=== PATIENT | male | born 1945 | race Hispanic/Latino ===

== ENCOUNTER 2019-08-23 11:45 | Outpatient (CLI) | payer BC ==
--- NOTE | 2019-08-23 13:23 | ULT ---
RENAL ULTRASOUND: INDICATION: Prostatic hypertrophy. UTI. FINDINGS: Kidneys have a normal sonographic appearance. No evidence of hydronephrosis. Urinary bladder is distended and unremarkable. The prostate is lobular and enlarged. IMPRESSION: Prostatic hypertrophy. Renal ultrasound is unremarkable. POS: [facility]
== END 2019-08-23 11:46 | disposition home or self-care (01) ==
LOC: BICULT 11:45
PROVIDERS: ATTEND Urology
DX: N40.1 Benign prostatic hyperplasia with lower urinary tract symptoms (principal); R35.0 Frequency of micturition
CPT/HCPCS: 76770

== ENCOUNTER 2020-05-14 09:44 | Outpatient (CLI) | payer BC ==
[~2020-05-14 09:44] MED LIST: Iopamidol-370 76% 500 ML 1 ML ONE
--- NOTE | 2020-05-14 10:35 | CT ---
CT Chest Abd Pelvis W Con History: Gastric cancer. Comparison: Stone protocol CT 2014 Findings: Mild atelectasis within the lung bases. Small 3-4 mm right major perifissural lymph nodule. No suspicious pulmonary nodule. Mild increase in number although not pathologically enlarged right paratracheal AP window and subcari nal lymph nodes. No significant pericardial effusion. Abnormal thickening along the distal gastric body is nearly circumferential with relative sparing of the inferior gastric wall. Small adjacent perigastric lymph nodes not pathologically enlarged. Along the anterior gastric wall sagittal image 24 and 25 there appears to be extra serosal involvemen t. Abnormal pathologic pyloric lymph node axial image 60 measures 15 mm in short axis. Liver is unremarkable. Pancreas is unremarkable. The spleen and gallbladder are both normal. No hydronephrosis. Celiac trunk and superior mesenteric arteries are both patent. Marked enlargement of the prostate. No pelvic adenopathy. Appendix is visualized and is normal. No periaortic adenopathy. Thoracic and lumbar spine are intact. Sternum and manubrium are intact. No suspicious osteolytic or o steoblastic foci. Small bone island anterolateral left fourth rib. No acute displaced rib fracture. Impression: 1. Nearly circumferential distal gastric body mass with high degree of concern for extraserosal invol vement along the anterior wall and metastatic pyloric lymph node. 2. Likely reactive or granulomatous mediastinal lymph nodes which is mild increase in number although not pathologically enlarged. 3. Markedly prostatomegaly.
== END 2020-05-14 09:45 | disposition home or self-care (01) ==
LOC: BICCT 09:44
PROVIDERS: ATTEND Internal Medicine Gastroenterology
DX: C16.9 Malignant neoplasm of stomach, unspecified (principal); K31.89 Other diseases of stomach and duodenum; N40.0 Benign prostatic hyperplasia without lower urinary tract symptoms
CPT/HCPCS: 71260; 74177; 82565; Q9967

== ENCOUNTER 2020-05-18 10:33 | Outpatient (CLI) | payer BC ==
--- NOTE | 2020-05-18 11:19 | RAD ---
EXAM: Chest PA and lateral: HISTORY: Preoperative exam. COMPARISON: None FINDINGS: Heart: Normal cardiac silhouette Aorta: Unremarkable Pulmonary vessels: Normal Costophrenic angles: Costophrenic angles are clear. Lungs: No consolidation or masses. Pneumothorax: No pneumothorax Osseous structures: No osseous abnormalities IMPRESSION: No acute cardiopulmonary process.
[2020-05-18 11:25] LABS: #Eosinphils 0.2 10x3/uL (0.0-0.5); #Monocytes 0.5 10x3/uL (0.0-1.1); #Neutrophils 3.7 10x3/uL (1.5-8.4); %Basophils 0.3 % (0.0-2.0); %Eosinophils 3.5 % (0.0-6.0); %Lymphocytes 22.4 % (18.0-47.0); %Monocytes 8.7 % (0.0-10.0); %Neutrophils 64.9 % (40.0-75.0); Hemoglobin 14.1 g/dL (14.0-18.0); Mean Corpuscular HGB CONC 32.6 G/DL (32.0-36.0); Mean Corpuscular Hemoglobin 29.3 PG (27.0-33.0); Mean Corpuscular Volume 89.8 fl (80.0-100.0); Mean Platelet Volume 9.8 fl (7.4-10.4); Platelet Count 228 10x3/uL (130-400); RBC Distribution Width 12.7 % (11.5-14.5); Red Blood Cell (RBC) Count 4.81 10x6/uL (4.40-5.80); White Blood Cell (WBC) Count 5.7 10x3/uL (4.5-11.0)
[2020-05-18 11:34] LABS: Anion Gap 14 mmol/L (10-20); BUN (Urea Nitrogen) 16 mg/dL (8.4-25.7); Calc. Creatinine Clearance 0 mL/min (70-130); Calcium 8.8 mg/dL (7.8-10.44); Carbon Dioxide 25 mmol/L (23-31); Chloride 104 mmol/L (98-107); Estimated GFR-MDRD 76; Glucose 110 mg/dL (83-110); Potassium 4.4 mmol/L (3.5-5.1); Sodium 139 mmol/L (136-145)
[2020-05-18 17:58] LABS: SARS-CoV-2 MS2 Positive; SARS-CoV-2 N Gene Negative; SARS-CoV-2 S Gene Negative; SARS-CoV-2 by NAA Not Detected (NotDetected); SARS-CoV-2 orf1ab Negative
--- NOTE | 2020-05-23 08:31 | EKG ---
Test Reason : PREOP Blood Pressure : / mmHG Vent. Rate : 059 BPM Atrial Rate : 059 BPM P-R Int : 158 ms QRS Dur : 076 ms QT Int : 424 ms P-R-T Axes : 061 075 061 degrees QTc Int : 419 ms Sinus bradycardia Otherwise normal ECG Confirmed by LIN OWENS, SAMANTHA ([id number]) on 05/23/2020 8:30:58 AM Referred By: Paula MAI Confirmed By:SAMANTHA CEBALLOS MD
== END 2020-05-18 10:34 | disposition home or self-care (01) ==
LOC: LABBT 10:33
PROVIDERS: ATTEND Specialist
DX: Z01.818 Encounter for other preprocedural examination (principal); Z20.828 Contact with and (suspected) exposure to other viral communicable diseases; C16.9 Malignant neoplasm of stomach, unspecified
CPT/HCPCS: 71046; 80048; 85025; 87635; 93005; 93010; U0003

== ENCOUNTER 2020-05-22 12:20 | Day surgery (SDC) | payer BC ==
[2020-05-21 11:20] VITALS: BMI 27.9
[2020-05-22] MEDS ORDERED: Acetaminophen 500 MG TAB ONE ×2 (12:42→12:43)
[2020-05-22] MEDS ORDERED: Ketorolac Tromethamine 30 MG/ML VIAL ONE (12:43)
[2020-05-22] MEDS ORDERED: Bupivacaine 0.25% HCL 30 ML VIAL ONE (16:47)
[2020-05-22] MEDS ORDERED: Lidocaine 1% w/Epinephrine 1:100K 20 ML VIAL ONE (16:47)
[2020-05-22] MEDS ORDERED: Propofol 500 MG/50 ML VIAL ONE (16:52)
[2020-05-22] MEDS ORDERED: Midazolam HCl 2 mg/2 ml Vial ONE (16:52)
[2020-05-22] MEDS ORDERED: Fentanyl 100 MCG/2 ML VIAL ONE (16:52)
--- NOTE | 2020-05-22 18:20 | RAD ---
Portable frontal chest radiograph: 05/22/2020 COMPARISON: 05/18/2020 HISTORY: Evaluate chest following Port-A-Cath placement FINDINGS: There is a right-sided Port-A-Cath with distal tip overlying the region of the SVC. No pneu mothorax or pleural fluid. No focal consolidation or alveolar edema. IMPRESSION: Right-sided Port-A-Cath. No pneumothorax seen.
--- NOTE | 2020-05-23 13:17 | OP ---
DATE OF PROCEDURE: 05/22/2020 PREOPERATIVE DIAGNOSIS: Malignancy, requiring chemotherapy. POSTOPERATIVE DIAGNOSIS: Malignancy, requiring chemotherapy. OPERATION PERFORMED: Placement of right subclavian power compatible standard size MediPort. ANESTHESIA: Total intravenous anesthesia with local using a mixture of 1% lidocaine with epinephrine and 0.25% Marcaine. INDICATIONS: The patient is a 74-year-old male. Chemotherapy has been recommended for him and MediPort is requested for this purpose. He was taken to the operating room for port placement. DESCRIPTION OF OPERATION: Informed consent was obtained. The patient was taken to the operating room where total intravenous anesthesia was obtained with the patient in supine position. Right periclavicular area was prepped with ChloraPrep and draped in sterile fashion. Local anesthetic was infiltrated and a large-gauge needle was passed under the clavicle in the subclavian vein. Guidewire was passed through the needle and fluoroscopically confirmed to enter the superior vena cava. Additional local anesthetic was infiltrated and transverse incision was created based on needle insertion site. A subcutaneous pocket was dissected inferiorly. Introducer dilator was passed over the guidewire under fluoroscopic guidance. The guidewire and dilator were removed, and the catheter was passed through the introducer. The tip of the catheter was positioned at the atriocaval junction and the catheter was trimmed to the appropriate length and secured to the locking hub of the MediPort. The port was then placed in the subcutaneous pocket where it was secured to the pectoral fascia with 2 interrupted sutures of 3-0 Prolene. The incision was then closed in layers with 3-0 and 4-0 Monocryl. Additional local anesthetic was infiltrated. The port was cannulated with a Richard needle and it aspirated blood freely and was flushed with heparinized saline. Dermabond was placed externally on the skin incision. There were no complications. Blood loss was negligible. The patient tolerated the procedure well and was taken to recovery room in stable condition. FINDINGS: A standard size port was selected secondary to the patient's body habitus. It was placed uneventfully into the right subclavian vein. Fluoroscopy was used throughout the procedure. There was essentially no blood loss. No complications. The patient tolerated the procedure well and was taken to recovery room in stable condition. Job ID: [id number]
== END 2020-05-22 18:40 | disposition home or self-care (01) ==
LOC: SDC 12:20
PROVIDERS: ATTEND Specialist
PROC: 02HV33Z Insertion of Infusion Device into Superior Vena Cava, Percutaneous Approach (ICD-10-PCS; principal; 2020-05-22)
DX: C16.9 Malignant neoplasm of stomach, unspecified (principal); I10 Essential (primary) hypertension; E78.00 Pure hypercholesterolemia, unspecified; R73.03 Prediabetes; N40.1 Benign prostatic hyperplasia with lower urinary tract symptoms; R35.0 Frequency of micturition
CPT/HCPCS: 71045; C1788; J0690; J1642; J1885; J2250; J2704; J3010; S0020

== ENCOUNTER 2020-05-31 07:59 | Outpatient (CLI) | payer BC ==
--- NOTE | 2020-05-31 10:45 | PET ---
PET SCAN WITH CT ATTENUATION CORRECTION: HISTORY: Malignant neoplasm of the stomach, unspecified. Gastric cancer. Evaluate for metastases. COMPARISON: None. TECHNIQUE: PET scan with CT attenuation correction is performed from the base of the brain to the proximal thigh s following the intravenous administration of 10.9 mm of [id number]. CORRELATION: Chest abdomen and pelvic CT 05/14/2020. FINDINGS: Head and neck: No abnormal FDG localization. Chest: No abnormal FDG localization in the axilla or lung parenchyma. CT used for attenuation correct ion does not demonstrate any lung parenchymal nodules. Hypermetabolic right paratracheal lymph node with a maximum SUV of 5.3. Hypermetabolic AP window lymph node with a maximum SUV of 3.9. Hypermetabo lic subcarinal lymph node with a maximum SUV of 4. Additional hypermetabolic right hilar lymph nodes are suspected. Abdomen and Pelvis: Increased FDG avidity involving the proximal body of the stomach with a maximum S UV of 18.5. The distal body and gastric antrum do not demonstrate any FDG avidity. The gastric serosa does not demonstrate any definite FDG avidity the previously described. Pyloric lymph node is FDG avid with a maximum SUV of 3.2. The possibility of a metastatic lymph node cannot be entirely excluded given the size and rounded appearance. No additional abnormal FDG localization in the alimen tary canal. No additional areas of abnormal FDG localization in the abdomen or pelvis. Osseous structures: No abnormal FDG localization. IMPRESSION: 1. Primary gastric cancer involving the proximal body of the stomach. There does not appear to be any extra-serosal involvement along the greater or lesser curvature of the stomach. 2. Hypermetabolic mediastinal lymph nodes, worrisome for metastases until proven otherwise. There is a peripyloric lymph node that is also hypermetabolic, compatible with metastases. Transcribed Date/Time: 05/31/2020 11:08 AM
== END 2020-05-31 08:00 | disposition home or self-care (01) ==
LOC: PET 07:59
PROVIDERS: ATTEND Internal Medicine Hematology & Oncology
DX: C16.9 Malignant neoplasm of stomach, unspecified (principal)
CPT/HCPCS: 78815; A9552

== ENCOUNTER 2021-02-06 08:43 | Outpatient (CLI) | payer MEDICARE, BC | END 2021-02-06 08:44 | disposition home or self-care (01) | LOC: LABBT 08:43 | PROVIDERS: ATTEND Urology | DX: Z01.818 Encounter for other preprocedural examination (principal); Z12.5 Encounter for screening for malignant neoplasm of prostate; N40.1 Benign prostatic hyperplasia with lower urinary tract symptoms; I10 Essential (primary) hypertension; C16.9 Malignant neoplasm of stomach, unspecified; R33.8 Other retention of urine; K59.00 Constipation, unspecified; Z20.822 Contact with and (suspected) exposure to COVID-19 | CPT/HCPCS: 80048; 85027; 85610; 85730; 86850; 86900; 86901; 93005; U0003; U0005; 93010 ==

== ENCOUNTER 2021-05-07 08:38 | Outpatient (CLI) | payer MEDICARE, BC ==
[2021-05-07] MEDS ORDERED: Iopamidol-370 76% 500 ML 1 ML ONE (10:00)
== END 2021-05-07 08:39 | disposition home or self-care (01) ==
LOC: BICCT 08:38
PROVIDERS: ATTEND Internal Medicine Hematology & Oncology
DX: C16.5 Malignant neoplasm of lesser curvature of stomach, unspecified (principal); D50.0 Iron deficiency anemia secondary to blood loss (chronic); N50.812 Left testicular pain; R10.32 Left lower quadrant pain; Z87.442 Personal history of urinary calculi; Z90.49 Acquired absence of other specified parts of digestive tract
CPT/HCPCS: 71260; 74177; Q9967

== ENCOUNTER 2021-07-30 08:29 | Outpatient (CLI) | payer MEDICARE, BC ==
[2021-07-30 09:08] LABS: Estimated GFR-MDRD - POC Greater than 90
== END 2021-07-30 08:30 | disposition home or self-care (01) ==
LOC: BICCT 08:29
PROVIDERS: ATTEND Internal Medicine Hematology & Oncology
DX: C16.9 Malignant neoplasm of stomach, unspecified (principal); R91.1 Solitary pulmonary nodule; Z98.890 Other specified postprocedural states
CPT/HCPCS: 71260; 74177; 82565

== ENCOUNTER 2022-01-28 08:15 | Outpatient (CLI) | payer MEDICARE, BC ==
[2022-01-28] MEDS ORDERED: Iopamidol-370 76% 500 ML 1 ML ONE (11:36)
== END 2022-01-28 08:16 | disposition home or self-care (01) ==
LOC: BICCT 08:15
PROVIDERS: ATTEND Internal Medicine Hematology & Oncology
DX: C16.5 Malignant neoplasm of lesser curvature of stomach, unspecified (principal); D50.0 Iron deficiency anemia secondary to blood loss (chronic); R91.8 Other nonspecific abnormal finding of lung field; N40.0 Benign prostatic hyperplasia without lower urinary tract symptoms; K31.89 Other diseases of stomach and duodenum; Z90.3 Acquired absence of stomach [part of]
CPT/HCPCS: 71260; 74177; 82565; Q9967

== ENCOUNTER 2022-05-07 08:06 | Outpatient (CLI) | payer MEDICARE, BC | END 2022-05-07 08:07 | disposition home or self-care (01) | LOC: BICCT 08:06 | PROVIDERS: ATTEND Internal Medicine Hematology & Oncology | DX: C16.9 Malignant neoplasm of stomach, unspecified (principal); R91.8 Other nonspecific abnormal finding of lung field; D50.0 Iron deficiency anemia secondary to blood loss (chronic); K63.89 Other specified diseases of intestine | CPT/HCPCS: 71260; 74177; 82565 ==

== ENCOUNTER 2022-10-02 15:42 | Outpatient (CLI) | payer MEDICARE, BC | END 2022-10-02 15:43 | disposition home or self-care (01) | LOC: ULT 15:42 | PROVIDERS: ATTEND Urology | DX: N40.1 Benign prostatic hyperplasia with lower urinary tract symptoms (principal); R35.0 Frequency of micturition; R33.8 Other retention of urine | CPT/HCPCS: 76770 ==

== ENCOUNTER 2023-01-31 17:59 | Emergency (ER) | payer MEDICARE, BC ==
[2023-01-31] MEDS ORDERED: HYDROcodone/Acetaminophen 5/325 mg Tablet ONE (19:01)
[2023-01-31] MEDS ORDERED: PROPOFOL 20 ML ONE (20:31)
== END 2023-01-31 22:01 | disposition home or self-care (01) ==
LOC: ERS 17:59
DX: S43.014A Anterior dislocation of right humerus, initial encounter (principal); M25.811 Other specified joint disorders, right shoulder; E78.00 Pure hypercholesterolemia, unspecified; E11.9 Type 2 diabetes mellitus without complications; I10 Essential (primary) hypertension; W18.30XA Fall on same level, unspecified, initial encounter; Y92.096 Garden or yard of other non-institutional residence as the place of occurrence of the external cause; Z79.899 Other long term (current) drug therapy
CPT/HCPCS: 23650; J2704

== ENCOUNTER 2023-02-08 19:55 | Emergency (ER) | payer MEDICARE, BC ==
[2023-02-08] MEDS ORDERED: PROPOFOL 20 ML ONE (21:38)
== END 2023-02-08 23:36 | disposition home or self-care (01) ==
LOC: ERS 19:55
DX: S43.004A Unspecified dislocation of right shoulder joint, initial encounter (principal); I10 Essential (primary) hypertension; E78.5 Hyperlipidemia, unspecified; Z79.899 Other long term (current) drug therapy; W18.30XA Fall on same level, unspecified, initial encounter
CPT/HCPCS: 23650; 96374; 96375; 99152; J2704

== ENCOUNTER 2023-03-10 07:35 | Emergency (ER) | payer MEDICARE, BC ==
[2023-03-10] MEDS ORDERED: PROPOFOL 20 ML ONE (08:01)
== END 2023-03-10 11:00 | disposition home or self-care (01) ==
LOC: ERS 07:35
DX: S43.014A Anterior dislocation of right humerus, initial encounter (principal); E78.00 Pure hypercholesterolemia, unspecified; I10 Essential (primary) hypertension; Z79.899 Other long term (current) drug therapy; Y93.B9 Activity, other involving muscle strengthening exercises
CPT/HCPCS: 23650; 99152; 99153; J2704

== ENCOUNTER 2023-03-13 09:40 | Outpatient (CLI) | payer MEDICARE, BC | END 2023-03-13 09:41 | disposition home or self-care (01) | LOC: BICMRI 09:40 | PROVIDERS: ATTEND Orthopaedic Surgery | DX: S43.004A Unspecified dislocation of right shoulder joint, initial encounter (principal); M75.101 Unspecified rotator cuff tear or rupture of right shoulder, not specified as traumatic; M25.411 Effusion, right shoulder; M21.921 Unspecified acquired deformity of right upper arm; S46.211A Strain of muscle, fascia and tendon of other parts of biceps, right arm, initial encounter ==

== ENCOUNTER 2023-03-31 05:43 | Observation (INO) | payer MEDICARE, BC ==
[2023-03-31] MEDS ORDERED: Tranexamic Acid 1,000 MG/10 ML VIAL ONE (05:59)
[2023-03-31] MEDS ORDERED: Vancomycin 1 GM/200 ML (FROZEN) BAG ONE (05:59)
[2023-03-31] MEDS ORDERED: Sodium Chloride 0.9% 0 ML ONE (05:59)
[2023-03-31] MEDS ORDERED: fentaNYL PF 100 MCG/2 ML SYRINGE ONE (06:29)
[2023-03-31] MEDS ORDERED: Phenylephrine 10 MG/ML VIAL ONE (06:29)
[2023-03-31] MEDS ORDERED: Ropivacaine 0.2% HCl/PF 20 ML ONE (06:40)
[2023-03-31] MEDS ORDERED: fentaNYL 50 mcg/mL 1 mL Vial ONE ×2 (06:40→09:54)
[2023-03-31] MEDS ORDERED: Midazolam HCl 2 mg/2 ml Vial ONE (06:40)
[2023-03-31] MEDS ORDERED: EPINEPHrine 1 MG/ML AMP ONE (06:40)
[2023-03-31] MEDS ORDERED: Lidocaine 1% (PF) 30 ML VIAL ONE (06:40)
[2023-03-31] MEDS ORDERED: Ropivacaine 0.5% HCl/PF (150 MG/30 ML VIAL) ONE (06:40)
[2023-03-31] MEDS ORDERED: CEFAZOLIN 2 GM VIAL ONE ×2 (06:50→06:52)
[2023-03-31] MEDS ORDERED: Sodium Chloride 0.9% 100 ML ONE ×2 (06:50→06:52)
[2023-03-31] MEDS ORDERED: PROPOFOL 200 MG/20 ML VIAL ONE (07:26)
[2023-03-31] MEDS ORDERED: Dexamethasone 20 MG/5 ML VIAL ONE (07:26)
[2023-03-31] MEDS ORDERED: Rocuronium Bromide 10 MG/ML (10ML VIAL) ONE (07:26)
[2023-03-31] MEDS ORDERED: Ondansetron PF 4 MG/2 ML Vial ONE (07:26)
[2023-03-31] MEDS ORDERED: NEOSTIGMINE 3 MG/3 ML SYR 3 MG/3 ML SYRINGE ONE (07:26)
[2023-03-31] MEDS ORDERED: Glycopyrrolate 0.2 MG/ML 5 ML SYRINGE ONE (07:26)
[2023-03-31] MEDS ORDERED: Lidocaine 1% PF 5 ML VIAL ONE (07:26)
[2023-03-31] MEDS ORDERED: fentaNYL 50 mcg/mL 1 mL Vial SLOW IVP PRN (07:32)
[2023-03-31] MEDS ORDERED: Ropivacaine 0.2% 550 ML 550 ML NERVE BLCK SCH (07:45)
[2023-03-31] MEDS ORDERED: Promethazine HCl 25 MG/ML VIAL IM PRN (07:45)
[2023-03-31] MEDS ORDERED: Zolpidem Tartrate 5 MG TAB PO PRN ×2 (07:45→09:28)
[2023-03-31] MEDS ORDERED: HYDROcodone/Acetaminophen 10/325 mg Tablet PO PRN ×4 (07:45→09:28)
[2023-03-31] MEDS ORDERED: traMADol HCl 50 MG TAB PO PRN ×2 (07:45)
[2023-03-31] MEDS ORDERED: Ondansetron PF 4 MG/2 ML Vial IVP PRN ×2 (07:45→09:28)
[2023-03-31] MEDS ORDERED: diphenhydrAMINE 50 MG CAP PO PRN (09:28)
[2023-03-31] MEDS ORDERED: Ondansetron ODT 4 MG TAB PO PRN (09:28)
[2023-03-31] MEDS ORDERED: Milk Of Magnesia 30 ML UDCUP PO PRN (09:28)
[2023-03-31] MEDS ORDERED: Methocarbamol 1 GM/10 ML VIAL SLOW IVP PRN (09:28)
[2023-03-31] MEDS ORDERED: Bisacodyl 10 MG SUPP PR PRN (09:28)
[2023-03-31] MEDS ORDERED: Methocarbamol 500 MG TAB PO PRN (09:28)
[2023-03-31] MEDS ORDERED: Acetaminophen 325 MG TAB PO PRN (09:28)
[2023-03-31] MEDS ORDERED: Famotidine 20 MG TAB PO SCH (09:45)
[2023-03-31 12:21] VITALS: BMI 281199.4
[2023-03-31] MEDS: Ketorolac Tromethamine 30 MG/ML VIAL IVP SCH ×3 (13:10→23:31)
[2023-03-31] MEDS: Sodium Chloride 0.9% 1,000 ML IV SCH ×2 (13:14→23:35)
[2023-03-31] MEDS: CEFAZOLIN 2 GM in Sodium Chloride 0.9% 100 ML IVPB SCH ×2 (15:48→23:31)
[2023-03-31] MEDS ORDERED: FLU VACC QS2023(65UP)/MF59C/PF 60 MCG/0.5 ML SYRINGE IM ONE (18:00)
[2023-03-31] MEDS: Famotidine 20 MG TAB PO SCH (21:40)
[2023-04-01] MEDS: Ketorolac Tromethamine 30 MG/ML VIAL IVP SCH ×2 (05:06→13:24)
[2023-04-01] MEDS: Famotidine 20 MG TAB PO SCH (09:04)
[2023-04-01 14:07] VITALS: BP 97/51; TEMP 97.5
== END 2023-04-01 16:17 | disposition home or self-care (01) ==
LOC: SDC 05:43 → SURG B 09:28
PROVIDERS: ADMIT Orthopaedic Surgery; ATTEND Orthopaedic Surgery
PROC: 0RRJ00Z Replacement of Right Shoulder Joint with Reverse Ball and Socket Synthetic Substitute, Open Approach (ICD-10-PCS; principal; 2023-03-31)
DX: S43.004A Unspecified dislocation of right shoulder joint, initial encounter (principal); S46.011A Strain of muscle(s) and tendon(s) of the rotator cuff of right shoulder, initial encounter; S46.111A Strain of muscle, fascia and tendon of long head of biceps, right arm, initial encounter; I10 Essential (primary) hypertension; E78.5 Hyperlipidemia, unspecified; Z79.899 Other long term (current) drug therapy; W19.XXXA Unspecified fall, initial encounter; Y92.59 Other trade areas as the place of occurrence of the external cause
CPT/HCPCS: 23472; 97116; A4306; C1713 ×6; C1776 ×3; J3010; J3370; J0171; J1100; J1885; J2001; J2250; J2370; J2405; J2704; J2795; J3490; J7050

== ENCOUNTER 2023-11-24 08:25 | Outpatient (CLI) | payer MEDICARE, BC | END 2023-11-24 08:26 | disposition home or self-care (01) | LOC: BICCT 08:25 | PROVIDERS: ATTEND Internal Medicine Hematology & Oncology | DX: C16.9 Malignant neoplasm of stomach, unspecified (principal); R91.8 Other nonspecific abnormal finding of lung field; Z98.890 Other specified postprocedural states | CPT/HCPCS: 71260; 74177; 82565 ==

== ENCOUNTER 2024-07-11 15:52 | Outpatient (CLI) | payer MEDICARE, BC | END 2024-07-11 15:53 | disposition home or self-care (01) | LOC: SCSRAD 15:52 | PROVIDERS: ATTEND Family Medicine | DX: M17.12 Unilateral primary osteoarthritis, left knee (principal) ==